=== PATIENT | male | born 1985 | race African-American/Black ===

== ENCOUNTER 2017-11-17 12:04 | Emergency (ER) | payer OTHER | END 2017-11-17 17:59 | disposition left against medical advice (07) | LOC: E/R 12:04 | DX: Z53.21 Procedure and treatment not carried out due to patient leaving prior to being seen by health care provider (principal) ==

== ENCOUNTER 2019-04-20 23:09 | Emergency (ER) | payer OTHER | END 2019-04-21 01:38 | disposition home or self-care (01) | LOC: E/R 23:09 | DX: S10.83XA Contusion of other specified part of neck, initial encounter (principal); J45.909 Unspecified asthma, uncomplicated; Y08.89XA Assault by other specified means, initial encounter | CPT/HCPCS: 72040; 99283-25 ==

== ENCOUNTER 2019-04-24 02:25 | Emergency (ER) | payer OTHER ==
[2019-04-24] MEDS: predniSONE 20 MG TAB PO (03:32)
[2019-04-24] MEDS: DIPHENHYDRAMINE 25 MG CAP PO (03:33)
[2019-04-24] MEDS: IBUPROFEN 600 MG TAB PO (03:33)
[2019-04-24] MEDS: FAMOTIDINE 20 MG TAB PO (03:33)
== END 2019-04-24 04:08 | disposition home or self-care (01) ==
LOC: FTE 04:08
DX: S80.861A Insect bite (nonvenomous), right lower leg, initial encounter (principal); S80.862A Insect bite (nonvenomous), left lower leg, initial encounter; L03.119 Cellulitis of unspecified part of limb; J45.909 Unspecified asthma, uncomplicated; W57.XXXA Bitten or stung by nonvenomous insect and other nonvenomous arthropods, initial encounter; Y92.9 Unspecified place or not applicable
CPT/HCPCS: 99283; J7512

== ENCOUNTER 2019-05-20 21:56 | Emergency (ER) | payer OTHER ==
[2019-05-20] MEDS: DIPHENHYDRAMINE 2.5 MG/ML 5ML CUP PO (22:54)
[2019-05-20] MEDS: DEXAMETHASONE 10 MG/ML 1 ML INJ IM (22:54)
[2019-05-20] MEDS: CEPHALEXIN 500 MG CAP PO (22:54)
[2019-05-20] MEDS: DEXAMETHASONE 10 MG/ML 1 ML INJ PO (23:00)
== END 2019-05-20 23:23 | disposition home or self-care (01) ==
LOC: FTE 21:56
DX: S60.562A Insect bite (nonvenomous) of left hand, initial encounter (principal); J45.909 Unspecified asthma, uncomplicated; W57.XXXA Bitten or stung by nonvenomous insect and other nonvenomous arthropods, initial encounter; Y92.9 Unspecified place or not applicable
CPT/HCPCS: 99283-25; J1100